=== PATIENT | female | born 1970 | race Hispanic/Latino ===

== ENCOUNTER 2019-10-13 10:57 | Day surgery (SDC) | payer BC ==
[~2019-10-13 10:57] MED LIST: SODIUM CHLORIDE 0.9% 1000 ML 1,000 ML IV SCH
--- NOTE | 2019-10-13 11:58 | Anesthesia Consultation ---
Anesthesia Consult and Med Hx Date of service: 10/13/19 - Airway Anesthetic Teeth Evaluation: Poor, Crowns, Bridges ROM Head & Neck: Adequate Mental/Hyoid Distance: Adequate Mallampati Class: Class II Intubation Access Assessment: Probably Good - Pulmonary Exam CTA: Yes - Cardiac Exam Cardiac Exam: RRR - Pre-Operative Health Status ASA Pre-Surgery Classification: ASA2 Proposed Anesthetic Plan: MAC - Pulmonary Hx Smoking: No Hx Respiratory Symptoms: No - Cardiovascular System Hx Hypertension: Yes Hx Cardia Arrhythmia: No - Central Nervous System Hx Neuromuscular Disorder: No Hx Psychiatric Problems: No - Endocrine Hx Renal Disease: No Hx Liver Disease: No - Other Systems Hx Alcohol Use: No Hx Substance Use: No Hx Obesity: No - Additional Comments Anesthesia Medical History Comments: Patient denied previous anesthesia related complications and in no acute distress.
--- NOTE | 2019-10-13 12:02 | Anesthesia Day of Surgery ---
Anesthesia Day of Surgery - Day of Surgery Patient Examined: Yes Patient H&P Reviewed: Yes Patient is NPO: Yes
[2019-10-13] MEDS ORDERED: PROPOFOL 200 MG/20 ML VIAL IV ONE (12:09)
--- NOTE | 2019-10-13 12:29 | Procedure Note ---
Date of procedure: 10/13/19 Pre-op diagnosis: GERD/Erosive, Esophagitis Post-op diagnosis: other (Moderate, Erosive Esophagitis/Padilla's Esophagus/Gastritis/R/O Celaic Disease) Procedure: EGD with Biopsy Anesthesia: MAC Surgeon: MONIKA TREVIÑO Estimated blood loss: minimal Pathology: list Specimen disposition: to lab Condition: stable Disposition: same day (Treat with PPI . Avoid aspirin and NSAID for 5 days; otherwise resume home medication. Follow up in 1 to 2 weeks ([phone]).)
--- NOTE | 2019-10-13 12:32 | Operative Report ---
PROCEDURE: Esophagogastroduodenoscopy with biopsy. INDICATIONS: This is a 49-year-old white female originally from [facility] who has been having persistent GERD symptoms. EGD was done to assess for the severity of any associated erosive esophagitis. DESCRIPTION OF PROCEDURE: Procedure was done after getting informed consent with MAC anesthesia. Instrument was passed through the hypopharynx into the esophagus, which showed moderate erosive esophagitis and evidence suggestive possibly of Padilla's esophagus. There was some salmon-colored mucosa noted within slightly above also the Z line. Photo documentation and biopsy was obtained to assess for any associated Padilla's esophagus and the severity of the esophagitis. The stomach showed gastritis. No ulcers were noted in the straight or the retroverted view. Biopsy was done from the gastric antrum, the gastric body and angular incisura to rule out for H. pylori and atrophic gastritis. The pylorus is patent. The duodenum in the first and second portion appeared normal. Biopsy was done from the second part to rule out for possible celiac disease. ASSESSMENT: Gastroesophageal reflux disease symptoms, moderate erosive esophagitis, gastritis, rule out Padilla's esophagus, rule out celiac disease. PLAN: To treat the patient with PPI, have the patient avoid aspirin and aspirin-related products for the next few days and follow up in the office in 1-2 weeks' time. The procedure was done in the GI lab with assistance of the GI lab team, which included PERLA Mora and with assistance of anesthesia. JOB# [id number] GWEN/RYANN
--- NOTE | 2019-10-13 12:50 | Post Anesthesia Evaluation ---
- Post Anesthesia Evaluation Patient Participated: Yes Airway Patent: Yes Stable Respiratory Function: Yes Nausea/Vomiting: No Temp > 96.8F: Yes Pain Manageable: Yes Adequeate Hydration: Yes Anesthesia Complications: No
[2019-10-13 13:15] VITALS: BP 121/76
[2019-10-13] MEDS ORDERED: SODIUM CHLORIDE 0.9% 100 ML ONE (17:00)
== END 2019-10-13 10:58 | disposition home or self-care (01) ==
LOC: GIO 10:57
DX: K21.0 Gastro-esophageal reflux disease with esophagitis (principal); K29.50 Unspecified chronic gastritis without bleeding; I10 Essential (primary) hypertension; K31.89 Other diseases of stomach and duodenum; Z79.899 Other long term (current) drug therapy; Z88.0 Allergy status to penicillin
CPT/HCPCS: 43239; 88305; 88342; J2704